=== PATIENT | male | born 1965 ===

== ENCOUNTER 2024-02-23 03:58 | Emergency (ER) | payer BC, SELFPAY ==
[2024-02-23 04:00] VITALS: BP 151/74; BP 199/115
--- NOTE | 2024-02-23 04:17 | ED.GENMED ---
History of Present Illness
General
Chief Complaint: Flank Pain
Source: patient
Exam Limitations: none
Time Seen by Provider: 02/23/24 04:12
Nursing documentation reviewed up to this point in time: agreed with
History of Present Illness
History of Present Illness:
This is a 58-year-old gentleman with history of hypertension, hyperlipidemia as well as history of kidney stones having passed a stone perhaps 7 years ago. He presents with abrupt onset of severe left flank pain that radiates to his left lower
quadrant that began approximately 1 hour ago accompanied with nausea, 1 episode of vomiting shortly after arrival to the ED. Current symptoms feel very similar to previous episodes of renal colic. He has never required urologic intervention for
kidney stones. Prior to this morning he has been feeling well and went to bed uneventfully. No dysuria urgency or hematuria. No fevers or chills.
No aggravating or relieving factors.
Past History
Past History
ED Past Medical History: HTN, Hypercholesterolemia and Other (Kidney stones)
ED Past Surgical History: Other (Hernia repair)
Social History
Tobacco: Non-smoker
Alcohol: Occasional
Personal:
Living: with family
Employment: Employed
Family History
Family History: Other (Noncontributory)
Phy Exam
Physical Exam
Physical Exam:
GENERAL: 58-year-old gentleman appears his stated age, awake and alert, appears in mild to moderate distress related to pain. Somewhat restless but cooperative. Significant hypertension noted. Afebrile.
EYE: anicteric
NECK: Supple, nontender, no meningismus, no significant adenopathy.
ENT: oral mucosa is moist. No rhinorrhea.
CARDIAC: Regular rate and rhythm. no murmur.
LUNGS: Clear breath sounds bilaterally, no acute respiratory distress, no wheezes/rales/rhonchi
ABDOMEN: Soft, nondistended, without focal tenderness, no r/g, moderate left CVA tenderness with percussion. Normoactive BS.
NEUROLOGICAL: Alert and oriented x3, no focal neuro deficits. Gait is steady.
SKIN: Warm and dry, normal color, skin intact. No rash.
MUSCULOSKELETAL: No C/C/E. peripheral pulses are full and equal b/l. No palpable tenderness.
PSYCH: Mildly anxious and restless related to pain. Cooperative.
Course
Orders/Labs/Results
Orders:
Orders
02/23/24 04:16
CT Abd/pel Without Iv Or Oral Urgent
Comment:
Reason For Exam: acute L flank pain w N/V
0.9% Sodium Chloride 1000 ml [Nss] 1,000 ml IV BOLUS
Ketorolac [Toradol] 30 mg IV NOW STA
Ondansetron Injectable [Zofran] 4 mg IV NOW STA
02/23/24 04:26
Basic Metabolic Panel Urgent
Complete Blood Count/With Diff Urgent
02/23/24 05:16
Urinalysis Reflex To Culture Urgent
Date Specimen was Collected: 02/23/24
Time Specimen was Collected: 05:14
Urine Microscopic Reflex Cult Urgent
02/23/24 05:17
HYDROmorphone [Dilaudid] 0.5 mg .ROUTE .STK-MED ONE
02/23/24 05:21
HYDROmorphone [Dilaudid] 0.5 mg IV NOW STA
02/23/24 05:46
Tamsulosin [Flomax] 0.4 mg PO NOW STA
Abnormal Lab Results
02/23/24 02/23/24
04:26 05:16
MPV 10.6 H fL
(7.4-10.4)
Absolute Monos (auto) 0.7 H 10^3/uL
(0.1-0.6)
Monocytes % 10.0 H %
(1.7-9.3)
BUN 21 H mg/dl
(9-20)
Glucose 124 H mg/dl
(70-99)
Ur Occult Blood Reflex 3+ A
(Negative)
Urine RBC 30-40 A /HPF
(0-2)
Urine Bacteria (Reflex) Few A
(Negative)
02/23/24 04:26
02/23/24 04:26
Vital Signs
Initial and Last Documented VS:
Initial Vital Signs
Temp Pulse Resp BP Pulse Ox
98.1 F 77 16 199/115 99
02/23/24 04:00 02/23/24 04:00 02/23/24 04:00 02/23/24 04:00 02/23/24 04:00
Last Documented Vital Signs
Temp Pulse Resp BP Pulse Ox
98.1 F 77 16 151/74 99
02/23/24 04:00 02/23/24 04:00 02/23/24 04:00 02/23/24 04:00 02/23/24 04:00
MDM/Problems Addressed
Differential Diagnosis Includes:
Patient presents with acute left flank pain accompanied with nausea, vomiting, restlessness, hypertension.
Highly suspect left ureteric stone.
Significantly hypertensive likely related to acute pain. Due to hypertension however left flank pain must consider aortic dissection however less likely.
Will medicate for pain and nausea, check labs and urinalysis and will plan for CT abdomen pelvis.
Chronic conditions affecting care: HTN and Other (History of kidney stones)
*Radiology
Radiology exam reviewed: radiology read reviewed (CAT scan shows a 3.5 mm stone within the mid left ureter with mild left hydroureteronephrosis. Additional bilateral nonobstructing renal calculi. There is an additional nonobstructing stone of 1.5
mm in the distal left ureter.)
*Pulse Oximetry
Patient hypoxic: no
*Critical Care Note
Total Time (30-74mins, 75-104mins- exclusive of procedures): Not Applicable
Update Note
Update Note:
02/23/2024 0547 Am
Pt reports moderate relief of pain after IV toradol and now near complete relief after IV dose of dilaudid. No further N/V
Labs are unremarkable
U/A (+)for microscopic blood but no evidence of UTI
CT shows 3.5 mm stone mid left ureter with mild hydro. an additional 1.5 mm nonobstructive stone at left UVJ.
Will d/c to home with Rx for toradol, to be taken QID over the next 4-5 days. percocet for as needed breakthrough pain. zofran for N/V. and a short course of flomax
discussed importance of staying well hydrated on a daily basis
will refer to urology for fu
Return precautions discussed.
ED Attending Note
-
Portions of this chart may have been created with voice recognition software.� Occasional wrong word or��sound alike� substitutions may have occurred due to the inherent limitations of voice recognition software.
Discharge Plan
Departure
Patient Disposition: Home (Routine Discharge)
Date of Disposition: 02/23/24
Time of Disposition: 05:47
Patient with high blood pressure during this ER visit?: No
Condition: Good
Discharge Problem:
calculus of the left mid ureter
Instructions: Kidney Stones (DC), How to Strain Your Urine
Prescriptions:
New
ketorolac 10 mg tablet
10 mg PO Q6H 5 Days Qty: 20 0RF
oxycodone-acetaminophen [Percocet] 5-325 mg Tablet
1 tab PO Q4HPRN PRN (Reason: pain) Qty: 10 0RF
tamsulosin [Flomax] 0.4 mg Capsule
0.4 mg PO DAILY Qty: 10 0RF
ondansetron 4 mg tablet,disintegrating
4 mg PO QID PRN (Reason: nausea and vomiting) Qty: 20 0RF
Referrals:
Fernando Gary DO [Family Provider] -
Noe Cristina Jr., MD [Active] - Call in 1-3 days for appt
Interventions
Interventions:
*Risk Screen - Suicide Last Done: 02/23/24 04:00
*General Assessment Last Done: 02/23/24 04:00
*Neglect/Abuse Screening Last Done: 02/23/24 04:00
Discharge Date and Time
Print Language: SETSWANA
[2024-02-23] MEDS: TORADOL 30 MG IV (04:22)
[2024-02-23] MEDS: NSS 1000 IV (04:22)
[2024-02-23] MEDS: ZOFRAN 4 MG IV (04:23)
[2024-02-23 04:41] LABS: % Eosinophils 5.1 % (0-6); % Immature Granulocytes 0.3 % (0-0.5); % Lymphocytes 32.4 % (20.5-51.1); % Neutrophils 51.2 % (42.2-75.2); Absolute Basophils 0.1 10^3/uL (0-0.2); Absolute Eosinophils 0.4 10^3/uL (0-0.7); Absolute Lymphocytes 2.3 10^3/uL (1.2-3.4); Absolute Monocytes 0.7 10^3/uL (0.1-0.6); Absolute Neutrophils 3.7 10^3/uL (1.4-6.5); Hematocrit 42.1 % (39.0-52.0); Hemoglobin 14.1 g/dL (13.0-18.0); Mean Corp Hgb Conc. 33.5 g/dL (33.0-37.0); Mean Corpuscular Volume 89.6 fL (80.0-94.0); Mean Platelet Volume 10.6 fL (7.4-10.4); Nucleated Red Blood Cells % 0 % (-); Platelet Count 184 10^3/uL (130-400); Red Cell Dist. Width 12.8 % (11.5-14.5); White Blood Cell Count 7.2 10^3/uL (4.8-10.8)
[2024-02-23 04:54] LABS: Blood Urea Nitrogen 21 mg/dl (9-20); Calcium 9.3 mg/dl (8.4-10.2); Carbon Dioxide 26 mmol/L (22-30); Chloride 104 mmol/L (98-107); Glucose 124 mg/dl (70-99); Potassium 3.9 mmol/L (3.5-5.1); Sodium 143 mmol/L (135-145); eGFR > 60.00
[2024-02-23 05:13] VITALS: BP 146/73
[2024-02-23] MEDS: DILAUDID 0.5 MG IV (05:22)
[2024-02-23 05:25] LABS: Urine Albumin Negative (Neg - Trace); Urine Bilirubin Negative (Negative); Urine Character Clear (Clear); Urine Color Yellow; Urine Glucose Negative (Negative); Urine Ketone Negative (Negative); Urine Leukocyte Negative (Negative); Urine Nitrite Negative (Negative); Urine Occult Blood 3+ (Negative); Urine Specific Gravity 1.015 (<1.030); Urine Urobilinogen Negative (Neg - 1+)
[2024-02-23 05:36] LABS: Urine Bacteria Few (Negative); Urine Red Blood Cell 30-40 /HPF (0-2); Urine Squamous Cell 0-2 /LPF (Few); Urine White Cell 0-2 /HPF (0-5)
[2024-02-23 06:42] VITALS: BP 107/56
[2024-02-23] MEDS: FLOMAX 0.4 MG PO (07:02)
== END 2024-02-23 07:08 | disposition home or self-care (01) ==
LOC: EMR 03:58
PROVIDERS: EMERGENCY PHYSICIAN Emergency Medicine; FAMILY PHYSICIAN Internal Medicine
DX: N13.2 Hydronephrosis with renal and ureteral calculous obstruction (principal); I10 Essential (primary) hypertension; E78.00 Pure hypercholesterolemia, unspecified; H35.30 Unspecified macular degeneration; Z87.442 Personal history of urinary calculi
CPT/HCPCS: 99284; 96374; 96375 ×2; 96361 ×3; 74018; 74176; 80048; 80053; 81003; 81015; 85025

== ENCOUNTER 2024-02-23 07:51 | Emergency (ER) | payer BC, SELFPAY ==
[2024-02-23] VITALS (8 sets, daily range): BP systolic 109–156; BP diastolic 65–90; BMI 31.6
[2024-02-23 08:49] LABS: % Basophils 0.6 % (0-2); % Eosinophils 0.9 % (0-6); % Immature Granulocytes 0.5 % (0-0.5); % Lymphocytes 13.2 % (20.5-51.1); % Monocytes 5.9 % (1.7-9.3); % Neutrophils 78.9 % (42.2-75.2); Absolute Basophils 0.1 10^3/uL (0-0.2); Absolute Eosinophils 0.1 10^3/uL (0-0.7); Absolute Immature Granulocytes 0.1 10^3/uL (0-0.05); Absolute Lymphocytes 1.5 10^3/uL (1.2-3.4); Absolute Monocytes 0.7 10^3/uL (0.1-0.6); Absolute Neutrophils 8.8 10^3/uL (1.4-6.5); Hematocrit 41.9 % (39.0-52.0); Hemoglobin 14.1 g/dL (13.0-18.0); Mean Corp Hgb Conc. 33.7 g/dL (33.0-37.0); Mean Corpuscular Hgb 30.5 pg (27.0-31.0); Mean Corpuscular Volume 90.5 fL (80.0-94.0); Mean Platelet Volume 10.5 fL (7.4-10.4); Nucleated Red Blood Cells % 0 % (-); Platelet Count 188 10^3/uL (130-400); Red Blood Cell Count 4.63 10^6/uL (4.70-6.10); Red Cell Dist. Width 12.8 % (11.5-14.5); White Blood Cell Count 11.1 10^3/uL (4.8-10.8)
[2024-02-23 09:06] LABS: ALT (SGPT) 25 U/L (0-50); AST (SGOT) 24 U/L (17-59); Albumin 4.4 g/dl (3.5-5.0); Alkaline Phosphatase 94 U/L (38-126); Blood Urea Nitrogen 16 mg/dl (9-20); Calcium 9.1 mg/dl (8.4-10.2); Carbon Dioxide 27 mmol/L (22-30); Chloride 102 mmol/L (98-107); Estimated Creatinine Clearance > 125 ml/min; Glucose 115 mg/dl (70-99); Sodium 142 mmol/L (135-145); Total Bilirubin 0.4 mg/dl (0.2-1.3); Total Protein 7.3 g/dl (6.3-8.2); eGFR > 60.00
[2024-02-23] MEDS: TORADOL 15 MG IV (09:27)
[2024-02-23] MEDS: ZOFRAN 4 MG IV (09:28)
[2024-02-23] MEDS: FLOMAX 0.4 MG PO (09:28)
[2024-02-23] MEDS: DILAUDID 0.5 MG IV ×2 (09:28→13:54)
[2024-02-23] MEDS: NSS 1000 IV (09:30)
--- NOTE | 2024-02-23 09:55 | ED.GENMED ---
History of Present Illness
General
Chief Complaint: Flank Pain
Source: patient and records
Exam Limitations: none
Time Seen by Provider: 02/23/24 08:22
Nursing documentation reviewed up to this point in time: agreed with
History of Present Illness
History of Present Illness:
Patient is 58-year-old male with known history of kidney stones who Re-presents to the emergency department after being discharged at 7 AM with left renal colic and a 3.5 cm left mid ureter stone with mild hydronephrosis and hydroureter because of
increasing pain with nausea and vomiting. Patient denies fever or chills. Patient has not had a kidney stone for years. This started at 3 AM when he was getting ready for work. Patient denies any back pain prior to that. Patient denies any
abdominal pain. Patient had a CT scan and lab work done and was discharged on Toradol, Percocet and Flomax. However as the patient was getting ready to get into his ride home he could not get into the car because of the pain.
Past History
Past History
ED Past Medical History: HTN, Hypercholesterolemia and Other (Kidney stones)
ED Past Surgical History: Other (Hernia repair)
Social History
Tobacco: Non-smoker
Alcohol: Occasional
Personal:
Living: with family
Employment: Employed
Family History
Family History: Other (Noncontributory)
Review of Systems
Review of Systems
All Other Systems: ROS reviewed and negative except as documented in HPI and ROS
Constitutional: Reports no symptoms
EENT: Reports no symptoms
Respiratory: Reports no symptoms
Cardiac: Reports no symptoms
ABD/GI: Reports nausea and vomiting; Denies abdominal pain, diarrhea or constipated
: Reports flank pain; Denies dysuria, frequency, urgency or bleeding
Musculoskeletal: Reports back pain
Skin: Reports no symptoms
Neurological: Reports no symptoms
Hematologic/Lymphatic: Reports no symptoms
Psychiatric: Reports no symptoms
Phy Exam
Physical Exam
Physical Exam:
Physical Exam
General: moderate distress, alert and appropriate, well nourished, well hydrated
HENT: Normocephalic, supple with no lymphadenopathy, no thyromegaly
Eyes: Clear sclera, conjuctiva without injection
Heart: Regular rhythm and rate. No S3, S4. No murmur.
Lungs: No respiratory distress, no stridor, lung sounds clear and equal bilaterally
Abdomen: Soft, nontender, no organomegaly, left CVA tenderness, BS good
Neuro: Alert and oriented x 3, CN II - XII intact, no motor focality, no cerebellar dysfunction
Skin: no rash
Psychiatric: well kept. interactive and cooperative
Extremities: No edema, cyanosis, tenderness
Course
Orders/Labs/Results
Orders:
Orders
02/23/24 08:34
CMP [Comprehensive Metabolic Panel] Urgent
Complete Blood Count/With Diff Urgent
02/23/24 09:03
0.9% Sodium Chloride 1000 ml [Nss] 1,000 ml IV BOLUS
HYDROmorphone [Dilaudid] 0.5 mg IV NOW STA
Ketorolac [Toradol] 15 mg IV NOW STA
Ondansetron Injectable [Zofran] 4 mg IV NOW STA
02/23/24 09:04
Tamsulosin [Flomax] 0.4 mg PO NOW STA
02/23/24 12:04
CR Abdomen - 1 View Urgent
Comment:
Reason For Exam: left renal colic
02/23/24 13:04
0.9% Sodium Chloride 500 ml [Nss] 500 ml IV BOLUS
HYDROmorphone [Dilaudid] 0.5 mg IV NOW STA
Abnormal Lab Results
02/23/24
08:34
WBC 11.1 H 10^3/uL
(4.8-10.8)
RBC 4.63 L 10^6/uL
(4.70-6.10)
MPV 10.5 H fL
(7.4-10.4)
Abs Immat Gran (auto) 0.1 H 10^3/uL
(0-0.05)
Absolute Neuts (auto) 8.8 H 10^3/uL
(1.4-6.5)
Absolute Monos (auto) 0.7 H 10^3/uL
(0.1-0.6)
Neutrophils % 78.9 H %
(42.2-75.2)
Lymphocytes % 13.2 L %
(20.5-51.1)
Glucose 115 H mg/dl
(70-99)
02/23/24 08:34
02/23/24 08:34
Vital Signs
Initial and Last Documented VS:
Initial Vital Signs
Temp Pulse Resp BP Pulse Ox
97.8 F 68 16 156/90 98
02/23/24 07:53 02/23/24 07:53 02/23/24 07:53 02/23/24 07:53 02/23/24 07:53
Last Documented Vital Signs
Temp Pulse Resp BP Pulse Ox
97.8 F 68 16 109/65 98
02/23/24 07:53 02/23/24 07:53 02/23/24 07:53 02/23/24 10:00 02/23/24 07:53
*Radiology
Radiology exam reviewed: radiology read reviewed
*Pulse Oximetry
Patient hypoxic: no
*EKG
Interpreted by ED Provider?: NA
*Terrazzo Mechanic Interpretation
Rate: Terrazzo Mechanic- N/A
*Critical Care Note
Total Time (30-74mins, 75-104mins- exclusive of procedures): Not Applicable
ED Attending Note
-
Portions of this chart may have been created with voice recognition software.� Occasional wrong word or��sound alike� substitutions may have occurred due to the inherent limitations of voice recognition software.
Discharge Plan
Departure
Patient Disposition: Home (Routine Discharge)
Date of Disposition: 02/23/24
Time of Disposition: 14:34
Patient with high blood pressure during this ER visit?: Yes
Condition: Fair
Covid-19: Not Applicable
Discharge Problem:
Renal colic on left side, Ureterolithiasis
Instructions: Kidney Stones (DC), Renal Colic (DC)
Prescriptions:
No Action
ketorolac 10 mg tablet
10 mg PO Q6H 5 Days Qty: 20 0RF
oxycodone-acetaminophen [Percocet] 5-325 mg Tablet
1 tab PO Q4HPRN PRN (Reason: pain) Qty: 10 0RF
tamsulosin [Flomax] 0.4 mg Capsule
0.4 mg PO DAILY Qty: 10 0RF
ondansetron 4 mg tablet,disintegrating
4 mg PO QID PRN (Reason: nausea and vomiting) Qty: 20 0RF
Referrals:
Fernando Gary, [Family Provider] -
Noe Cristina Jr., MD [Active] - Follow up in 2-3 days
Interventions
Interventions:
*Risk Screen - Suicide Last Done: 02/23/24 07:53
*General Assessment Last Done: 02/23/24 08:27
*Neglect/Abuse Screening Last Done: 02/23/24 07:53
ED- Fall Risk Assessment Last Done: 02/23/24 08:27
WS-Hybqdx-Kajfqbngub Assessment Last Done: 02/23/24 08:29
ED-Male Genitourinary Assessment Last Done: 02/23/24 08:29
Discharge Date and Time
Print Language: DANISH
[2024-02-23] MEDS: NSS 500 IV (13:55)
== END 2024-02-23 15:01 | disposition home or self-care (01) ==
LOC: EMR 07:51
PROVIDERS: EMERGENCY PHYSICIAN Emergency Medicine; FAMILY PHYSICIAN Internal Medicine
DX: N20.2 Calculus of kidney with calculus of ureter (principal); R10.9 Unspecified abdominal pain; I10 Essential (primary) hypertension; E78.00 Pure hypercholesterolemia, unspecified; H35.30 Unspecified macular degeneration; Z87.442 Personal history of urinary calculi
CPT/HCPCS: 99284; 96374; 96375 ×2; 96361 ×2; 96376; 74018; 80053; 85025

== ENCOUNTER 2024-11-29 04:56 | Emergency (ER) | payer BC, SELFPAY ==
[2024-11-29 04:58] VITALS: BP 133/90
[2024-11-29 05:16] VITALS: BMI 30.5
--- NOTE | 2024-11-29 05:27 | ED.GENMED ---
History of Present Illness
General
Chief Complaint: Cough
Source: patient and spouse
Time Seen by Provider: 11/29/24 05:15
History of Present Illness
History of Present Illness:
Note:
CHIEF COMPLAINT(S)
Chronic cough, chills, and night sweats.
HISTORY OF PRESENT ILLNESS
The patient is a 59-year-old male presenting with a chronic cough, chills, and night sweats persisting for the last five nights. He reports waking up drenched in sweat, significant enough to soak his pillows and sheets. The patient describes his
cough as persistent and severe, especially exacerbated by physical exertion, to the point where he felt he might pass out. He has been experiencing shortness of breath and has a history of using a CPAP machine regularly.
The patient completed a five-day course of oral steroids as prescribed by his primary care physician, although he finds it hard to determine if there was any significant improvement. Additionally, he has been using prescribed cough medicine, which
he acquired a couple of days ago, but has not noted substantial relief.
The patient mentioned that his daughter recently had a severe case of hand, foot, and mouth disease, and believes he might have contracted a virus as a result, according to his family physician.
The patient denies any recent tick bites but has had a low-grade fever reaching up to 102�F a few times, with fluctuations to 97�F at other times. 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
is a smoker.
Additional history
Spouse states that the patient today felt more ill and could not go to work.
PHYSICAL EXAM
General: Alert, oriented, no acute distress.
Skin: Warm, dry.
Head: Normocephalic, atraumatic.
Neck: Supple, trachea midline.
Eye Ears, Nose, Mouth, and Throat: Oral mucosa moist.
Cardiovascular: Heart rate regular, normal peripheral perfusion, no edema.
Respiratory: Respirations are non-labored. Presence of rhonchi and crackles in the right base.
Gastrointestinal: Abdomen nondistended.
Back: Normal range of motion, normal alignment.
Musculoskeletal: Normal range of motion, normal strength.
Neurological: Alert and oriented to person, place, time, and situation, no focal neurological deficit observed.
Psychiatric: Cooperative, appropriate mood and affect.
PLAN
1. Obtain a chest X-ray to rule out pneumonia or other significant findings.
2. Consider atypical pneumonia if the X-ray is negative for focal pneumonia.
3. Administer a bronchodilator treatment in the emergency department to assess response and consider prescribing Albuterol for home use.
4. Initiate antibiotics if chest X-ray shows evidence of pneumonia.
5. Educate the patient on monitoring his symptoms and seeking further medical advice if they worsen.
DIFFERENTIAL DIAGNOSIS
The Differential Diagnosis includes, in no particular order and is not limited to:
1. Community-acquired pneumonia
2. Acute bronchitis
3. Atypical pneumonia
4. Viral respiratory infection
5. Chronic obstructive pulmonary disease exacerbation
6. Pertussis (whooping cough)
7. Exposure-related respiratory condition
8. Tuberculosis
9. Heart failure with pulmonary edema
10. Upper respiratory tract infection
Disposition:
SUMMARY OF ENCOUNTER
The patient, a 59-year-old male, presented to the emergency department with chronic cough, chills, and night sweats. He reported a history of cough exacerbated by physical exertion, night sweats enough to soak bedding, and usage of a CPAP machine.
His physical examination had bronchial sounds and crackles in the right lung base. A chest X-ray confirmed the presence of pneumonia. After evaluation and considering the absence of hypoxia, the patient was determined to be well-appearing and
suitable for outpatient management. Bronchodilators were administered and a nebulizer machine was provided for home use.
DISPOSITION
Discharge
ASSESSMENT
Community-acquired pneumonia.
PLAN
1. Prescribe antibiotics to cover pneumonia.
2. Administer bronchodilators and supply the patient with a nebulizer for use at home.
3. Recommend follow-up with outpatient services to monitor the condition.
INDEPENDENT REVIEW OF LABS AND INTERPRETATION OF TESTS
- My independent interpretation of the chest X-ray indicates pneumonia.
PATIENT EDUCATION AND COUNSELING
The patient was educated on the importance of completing the antibiotic course and was advised to monitor symptoms. Warning signs, should the symptoms worsen, were reviewed with the patient.
FOLLOW-UP INSTRUCTIONS
The patient is instructed to follow up as an outpatient with their primary care physician or as instructed by the emergency department.
MEDICATION RECONCILIATION
1. Antibiotics were prescribed for pneumonia.
2. Bronchodilators were administered in the emergency department, and a nebulizer was provided for home use.
MEDICAL DECISION MAKING
- Number and Complexity of Problems Addressed: Chronic conditions affecting care include community-acquired pneumonia, chronic cough, exposure-related respiratory condition, and possible viral respiratory infection.
- Data:
- Category 1: Chest X-ray was independently interpreted to confirm pneumonia.
- Risk: Prescription medication was prescribed.
DIAGNOSIS
1. Pneumonia, unspecified organism (ICD-10: J18.9).
Past History
Past History
ED Past Medical History: HTN, Hypercholesterolemia and Other (Kidney stones)
ED Past Surgical History: Other (Hernia repair)
Social History
Tobacco: Non-smoker
Alcohol: Occasional
Personal:
Living: with family
Employment: Employed
Family History
Family History: Other (Noncontributory)
Phy Exam
Physical Exam
Physical Exam:
.
Sepsis
Sepsis Screening
Sepsis Assessment: Sepsis Ruled Out
Sepsis Screen
Sepsis Screen: Sepsis Ruled Out
Date: 11/29/24
Time: 06:32
Course
Orders/Labs/Results
Orders:
Orders
11/29/24 05:12
CR Chest - 2 Views Urgent
Comment:
Reason For Exam: cough
11/29/24 05:26
Ipratropium/Albuterol Sulfate [Duoneb] 3 ml INH R NOW STA
11/29/24 06:13
Amoxicillin 875 mg/Clav 125 mg [Augmentin 875 mg/125 mg] 1 tablet PO NOW STA
Vital Signs
Initial and Last Documented VS:
Initial Vital Signs
Temp Pulse Resp BP Pulse Ox
98.2 F 80 20 133/90 97
11/29/24 04:58 11/29/24 04:58 11/29/24 04:58 11/29/24 04:58 11/29/24 04:58
Last Documented Vital Signs
Temp Pulse Resp BP Pulse Ox
98.2 F 80 20 133/90 97
11/29/24 04:58 11/29/24 04:58 11/29/24 04:58 11/29/24 04:58 11/29/24 05:27
*Pulse Oximetry
SaO2: 97
Oxygen Mode of Delivery: Room air
Patient hypoxic: no
*Critical Care Note
Total Time (30-74mins, 75-104mins- exclusive of procedures): Not Applicable
ED Attending Note
-
Portions of this chart may have been created with voice recognition software.� Occasional wrong word or��sound alike� substitutions may have occurred due to the inherent limitations of voice recognition software.
Discharge Plan
Departure
Patient Disposition: Home (Routine Discharge)
Date of Disposition: 11/29/24
Time of Disposition: 06:20
Patient with high blood pressure during this ER visit?: Yes
Discharge Problem:
Pneumonia
Instructions: Pneumonia, Adult (DC), BLOOD PRESSURE
Prescriptions:
New
amoxicillin-pot clavulanate 875-125 mg tablet
1 tab PO BID Qty: 20 0RF
albuterol sulfate 2.5 mg /3 mL (0.083 %) solution for nebulization
2.5 mg inhalation Q4H PRN (Reason: shortness of breath or wheezing) Qty: 90 0RF
No Action
ketorolac 10 mg tablet
10 mg PO Q6H 5 Days Qty: 20 0RF
oxycodone-acetaminophen [Percocet] 5-325 mg Tablet
1 tab PO Q4HPRN PRN (Reason: pain) Qty: 10 0RF
tamsulosin [Flomax] 0.4 mg Capsule
0.4 mg PO DAILY Qty: 10 0RF
ondansetron 4 mg tablet,disintegrating
4 mg PO QID PRN (Reason: nausea and vomiting) Qty: 20 0RF
Referrals:
[facility] [Provider Group]
Rajiv Cedeno MD [Active, Family Practice]
Activity Restrictions/Additional Instructions:
Please use albuterol every 4 hours as discussed. Use ibuprofen Tylenol for fever control. Please see your doctor in the next 3 to 5 days for follow-up and reevaluation. Return immediately for worsening symptoms, difficulty breathing, coughing up
blood or any other concerns.
Interventions
Interventions:
*Risk Screen - Suicide Last Done: 11/29/24 05:06
*General Assessment Last Done: 11/29/24 05:06
*Neglect/Abuse Screening Last Done: 11/29/24 05:06
*ED- Fall Risk Assessment Last Done: 11/29/24 05:06
*ED COVID-19 Vaccine History Last Done: 11/29/24 05:06
ED- Pulmonary Assessment Last Done: 11/29/24 05:06
Discharge Date and Time
Print Language: QATARI
[2024-11-29] MEDS: DUONEB 3 ML INH (05:39)
[2024-11-29 05:44] VITALS: BP 119/82
[2024-11-29] MEDS: AUGMENTIN 875 MG/125 MG 1 TABLET PO (06:47)
[2024-11-29 06:54] VITALS: BP 127/85
== END 2024-11-29 07:00 | disposition home or self-care (01) ==
LOC: EMR 04:56
PROVIDERS: EMERGENCY PHYSICIAN Emergency Medicine; FAMILY PHYSICIAN Internal Medicine
DX: J18.9 Pneumonia, unspecified organism (principal); I10 Essential (primary) hypertension; E78.00 Pure hypercholesterolemia, unspecified
CPT/HCPCS: 94640; 99283; 71046